=== PATIENT | female | born 1995 | race Caucasian/White ===

== ENCOUNTER 2016-06-24 15:53 | Emergency (ER) | payer MEDICAID ==
--- NOTE | 2016-06-24 15:58 | ER Document Report ---
ED Medical Screen (RME) - General Stated Complaint: RIGHT SIDE MOUTH/JAW PAIN Mode of Arrival: Ambulatory Information source: Patient Notes: Patient presents with right-sided dental pain. Patient was evaluated and treated at her dentist this morning. But she is still having pain. Motrin is not helping pain. I have greeted and performed a rapid initial assessment of this patient. A comprehensive ED assessment and evaluation of the patient, analysis of test results and completion of the medical decision making process will be conducted by additional ED providers. TRAVEL OUTSIDE OF THE U.S. IN LAST 30 DAYS: No - Related Data Allergies/Adverse Reactions: hydromorphone [From Dilaudid] Allergy (Verified 06/24/16 15:56) tramadol Allergy (Verified 06/24/16 15:56) Past Medical History Psychiatric Medical History: Reports: Hx Attention Deficit Hyperactivity Disorder Past Surgical History: Reports: Hx Tonsillectomy - Immunizations Hx Diphtheria, Pertussis, Tetanus Vaccination: Yes
--- NOTE | 2016-06-24 16:25 | ER Document Report ---
ED Oral Problem - General Chief Complaint: Toothache Stated Complaint: RIGHT SIDE MOUTH/JAW PAIN Mode of Arrival: Ambulatory Information source: Patient TRAVEL OUTSIDE OF THE [place].S. IN LAST 30 DAYS: No - HPI Patient complains to provider of: Jaw pain, Toothache Onset: Other - Related Data Allergies/Adverse Reactions: hydromorphone [From Dilaudid] Allergy (Verified 06/24/16 15:56) tramadol Allergy (Verified 06/24/16 15:56) Past Medical History - General Information source: Patient - Social History Smoking Status: Current Every Day Smoker Chew tobacco use (# tins/day): No Frequency of alcohol use: None Drug Abuse: None Family History: Reviewed & Not Pertinent Patient has suicidal ideation: No Patient has homicidal ideation: No Renal/ Medical History: Denies: Hx Peritoneal Dialysis Psychiatric Medical History: Reports: Hx Attention Deficit Hyperactivity Disorder Past Surgical History: Reports: Hx Tonsillectomy - Immunizations Hx Diphtheria, Pertussis, Tetanus Vaccination: Yes Review of Systems - Review of Systems Constitutional: No symptoms reported EENT: No symptoms reported Cardiovascular: No symptoms reported Respiratory: No symptoms reported Gastrointestinal: No symptoms reported Genitourinary: No symptoms reported Female Genitourinary: No symptoms reported Musculoskeletal: No symptoms reported Skin: No symptoms reported Hematologic/Lymphatic: No symptoms reported Neurological/Psychological: No symptoms reported Physical Exam - Vital signs Interpretation: Normal - General General appearance: Appears well, Alert - HEENT Head: Normocephalic, Atraumatic Eyes: Normal Pupils: PERRL - Respiratory Respiratory status: No respiratory distress Chest status: Nontender Breath sounds: Normal Chest palpation: Normal - Cardiovascular Rhythm: Regular Heart sounds: Normal auscultation Murmur: No - Abdominal Inspection: Normal Distension: No distension Bowel sounds: Normal Tenderness: Nontender Organomegaly: No organomegaly - Back Back: Normal, Nontender - Extremities General upper extremity: Normal inspection, Nontender, Normal color, Normal ROM , Normal temperature General lower extremity: Normal inspection, Nontender, Normal color, Normal ROM , Normal temperature, Normal weight bearing. No: Jo Ann's sign - Neurological Neuro grossly intact: Yes Cognition: Normal Orientation: AAOx4 [place] Coma Scale Eye Opening: Spontaneous Janie Coma Scale Verbal: Oriented Janie Coma Scale Motor: Obeys Commands [place] Coma Scale Total: 15 Speech: Normal Motor strength normal: LUE, RUE, LLE, RLE Sensory: Normal - Psychological Associated symptoms: Normal affect, Normal mood - Skin Skin Temperature: Warm Skin Moisture: Dry Skin Color: Normal Discharge - Discharge Clinical Impression: Pain, dental Disposition: HOME, SELF-CARE Instructions: Oral Narcotic Medication ([facility]), Toothache ([facility]) Prescriptions: Hydrocodone/Acetaminophen [[place] 5-325 Tablet] 1 each PO Q4 PRN #12 tablet PRN Reason: Forms: Smoking Cessation Education
[2016-06-24 17:03] VITALS: BP 114/64
== END 2016-06-24 17:02 | disposition home or self-care (01) ==
LOC: ER 15:53
DX: K08.89 Other specified disorders of teeth and supporting structures (principal); R68.84 Jaw pain; F17.210 Nicotine dependence, cigarettes, uncomplicated
CPT/HCPCS: 99282

== ENCOUNTER 2016-10-22 20:48 | Emergency (ER) | payer MEDICAID ==
[2016-10-22 21:39] VITALS: BP 110/76
[2016-10-22] MEDS ORDERED: OXYCODONE-ACETAMINOPHEN 5-325 MG TABLET PO ONE (22:37)
[2016-10-22] MEDS ORDERED: PENICILLIN V POTASSIUM 500 MG TABLET PO ONE (22:37)
--- NOTE | 2016-10-22 22:37 | ER Document Report ---
ED Oral Problem - General Chief Complaint: Toothache Stated Complaint: TOOTHACHE Time Seen by Provider: 10/22/16 22:32 Mode of Arrival: Ambulatory Information source: Patient TRAVEL OUTSIDE OF THE [place] IN LAST 30 DAYS: No - HPI Patient complains to provider of: Toothache Onset: Last week Onset: Gradual Quality of pain: Achy Severity: Moderate Pain Level: 3 Context: Fractured tooth Associated symptoms: None Similar symptoms previously: Yes Recently seen / treated by doctor/dentist: No Notes: Patient is a 21-year-old female who presents to the emergency room complaining of dental pain, reports pain and swelling and erythema in the left mandibular molars, has a dentist that she follows with but is unable to, denies any drainage or fever, no known injury but she reports that tooth is chipped, has a history of poor dentition in the past - Related Data Allergies/Adverse Reactions: hydromorphone [From Dilaudid] Allergy (Verified 10/22/16 21:35) tramadol Allergy (Verified 10/22/16 21:35) Past Medical History - General Information source: Patient - Social History Smoking Status: Current Every Day Smoker Family History: Reviewed & Not Pertinent Renal/ Medical History: Denies: Hx Peritoneal Dialysis Psychiatric Medical History: Reports: Hx Attention Deficit Hyperactivity Disorder Past Surgical History: Reports: Hx Tonsillectomy - Immunizations Hx Diphtheria, Pertussis, Tetanus Vaccination: Yes Review of Systems - Review of Systems Constitutional: No symptoms reported EENT: See HPI Cardiovascular: No symptoms reported Respiratory: No symptoms reported Gastrointestinal: No symptoms reported Genitourinary: No symptoms reported Female Genitourinary: No symptoms reported Musculoskeletal: No symptoms reported Skin: No symptoms reported Hematologic/Lymphatic: No symptoms reported Neurological/Psychological: No symptoms reported -: Yes All other systems reviewed and negative Physical Exam - Vital signs Vitals: Temp Pulse Resp BP Pulse Ox 98.8 F 74 20 110/76 99 10/22/16 21:35 10/22/16 21:35 10/22/16 21:35 10/22/16 21:35 10/22/16 21:35 Interpretation: Normal - General General appearance: Appears well, Alert - HEENT Head: Normocephalic, Atraumatic Eyes: Normal Conjunctiva: Normal Extraocular movements intact: Yes Eyelashes: Normal Pupils: PERRL Mouth/Lips: Dental fracture Mucous membranes: Normal Teeth diagram: 1 - Erythema and swelling with dental caries and fracture - Respiratory Respiratory status: No respiratory distress - Cardiovascular Rhythm: Regular - Abdominal Inspection: Normal - Back Back: Normal - Extremities General upper extremity: Normal inspection, Nontender, Normal color, Normal ROM , Normal temperature General lower extremity: Normal inspection, Nontender, Normal color, Normal ROM , Normal temperature, Normal weight bearing. No: Jo Ann's sign - Neurological Neuro grossly intact: Yes Cognition: Normal Orientation: AAOx4 Janie Coma Scale Eye Opening: Spontaneous Janie Coma Scale Verbal: Oriented [place] Coma Scale Motor: Obeys Commands [place] Coma Scale Total: 15 Speech: Normal Motor strength normal: LUE, RUE, LLE, RLE Sensory: Normal - Psychological Associated symptoms: Normal affect, Normal mood - Skin Skin Temperature: Warm Skin Moisture: Dry Skin Color: Normal Course - Re-evaluation Re-evalutation: 10/22/16 22:40 Patient with dental caries in fracture, as well as evidence of a dental infection, possible early abscess, will be started on antibiotics and provided with a small amount of pain medication as well as information for follow-up with a dentist, acknowledges understanding and agreement with this plan - Vital Signs Vital signs: Temp Pulse Resp BP Pulse Ox 98.8 F 74 20 110/76 99 10/22/16 21:35 10/22/16 21:35 10/22/16 21:35 10/22/16 21:35 10/22/16 21:35 Discharge - Discharge Clinical Impression: Dental abscess Condition: Stable Disposition: HOME, SELF-CARE Instructions: Abscess ([facility]), Penicillin V K ([facility]), Toothache ([facility]), Oral Narcotic Medication ([facility]) Additional Instructions: Follow up with your dentist in one to 2 days. Return to the emergency room immediately if symptoms worsen or any additional concerns. Prescriptions: Oxycodone HCl/Acetaminophen [Percocet 5-325 mg Tablet] 1 - 2 tab PO ASDIR PRN # 15 tablet PRN Reason: Penicillin V Potassium [Penicillin Vk 500 mg Tablet] 500 mg PO TID #30 tablet
== END 2016-10-22 22:44 | disposition home or self-care (01) ==
LOC: ER 20:48
DX: K04.7 Periapical abscess without sinus (principal); K08.89 Other specified disorders of teeth and supporting structures; F17.200 Nicotine dependence, unspecified, uncomplicated
CPT/HCPCS: 99282

== ENCOUNTER 2016-11-03 01:16 | Emergency (ER) | payer MEDICAID ==
[2016-11-03] MEDS ORDERED: BUPIVACAINE HCL 0.5%-EPI 1:200000 INJ/PF 30 ML VIAL INJ ONE (02:54)
--- NOTE | 2016-11-03 02:55 | ER Document Report ---
ED Oral Problem - General Chief Complaint: Toothache Stated Complaint: TOOTH PAIN Time Seen by Provider: 11/03/16 02:15 Mode of Arrival: Ambulatory Information source: Patient Notes: Patient is a 21-year-old female who presents to the ER today for dental pain in the left lower jaw after having a tooth extraction yesterday. Patient states that she was given 15 Percocet, doubled up on them and is already out of them. She presents today asking for a dental block in the area. She is also on clindamycin given to her by the dentist. She denies any fevers , chills, swelling, drainage. TRAVEL OUTSIDE OF THE [place] IN LAST 30 DAYS: No - Related Data Allergies/Adverse Reactions: hydromorphone [From Dilaudid] Allergy (Verified 10/22/16 21:35) tramadol Allergy (Verified 10/22/16 21:35) Past Medical History - General Information source: Patient - Social History Smoking Status: Unknown if Ever Smoked Family History: Reviewed & Not Pertinent Patient has suicidal ideation: No Patient has homicidal ideation: No Renal/ Medical History: Denies: Hx Peritoneal Dialysis Psychiatric Medical History: Reports: Hx Attention Deficit Hyperactivity Disorder Past Surgical History: Reports: Hx Tonsillectomy - Immunizations Hx Diphtheria, Pertussis, Tetanus Vaccination: Yes Review of Systems - Review of Systems Constitutional: No symptoms reported EENT: See HPI Cardiovascular: No symptoms reported Respiratory: No symptoms reported Gastrointestinal: No symptoms reported Genitourinary: No symptoms reported Female Genitourinary: No symptoms reported Musculoskeletal: No symptoms reported Skin: No symptoms reported Hematologic/Lymphatic: No symptoms reported Neurological/Psychological: No symptoms reported Physical Exam - Vital signs Vitals: Temp Pulse Resp BP Pulse Ox 98.1 F 84 19 110/59 L 98 11/03/16 01:28 11/03/16 01:28 11/03/16 01:28 11/03/16 01:28 11/03/16 01:28 - Notes Notes: PHYSICAL EXAMINATION: GENERAL: Well-appearing and in no acute distress. HEAD: Atraumatic, normocephalic. EYES: Pupils equal round and reactive to light, extraocular movements intact, sclera anicteric, conjunctiva are normal. ENT: ear canals without erythema or foreign body, TMs pearly moreira with good bony landmarks, nares patent, oropharynx clear without exudates. Moist mucous membranes. poor dentition, left tooth #20 missing, no erythema to gumline, tender to palpation over that area NECK: Normal range of motion, supple without lymphadenopathy LUNGS: CTAB and equal. No wheezes rales or rhonchi. HEART: Regular rate and rhythm without murmurs EXTREMITIES: Normal range of motion, no pitting edema. No cyanosis. NEUROLOGICAL: Cranial nerves grossly intact. Normal sensory/motor exams. PSYCH: Normal mood, normal affect. SKIN: Warm, Dry, normal turgor, no rashes or lesions noted Course - Vital Signs Vital signs: Temp Pulse Resp BP Pulse Ox 98.1 F 84 19 110/59 L 98 11/03/16 01:28 11/03/16 01:28 11/03/16 01:28 11/03/16 01:28 11/03/16 01:28 Procedures - Additional Procedures dental block Time performed: 03:00 - Patient tolerated procedure well, local dental block Discharge - Discharge Clinical Impression: Pain, dental Instructions: Toothache ([facility]) Additional Instructions: Return immediately for any new or worsening symptoms. Follow up with dentist, call tomorrow to make followup appointment. Prescriptions: Ketorolac Tromethamine [Toradol 10 mg Tablet] 10 mg PO Q6HP PRN #30 tablet PRN Reason: Referrals: KEI GUZMÁN MD [Primary Care Provider] - Follow up as needed
[2016-11-03] MEDS ORDERED: HYDROCODONE/ACETAMINOPHEN 5-325 MG 6 TAB/DSPK PO PRN (03:06)
[2016-11-03 03:14] VITALS: BP 114/63
== END 2016-11-03 03:13 | disposition home or self-care (01) ==
LOC: ER 01:16
PROC: 3E0T3BZ Introduction of Anesthetic Agent into Peripheral Nerves and Plexi, Percutaneous Approach (ICD-10-PCS; principal; 2016-11-03)
DX: K08.89 Other specified disorders of teeth and supporting structures (principal); Z98.890 Other specified postprocedural states; Z88.5 Allergy status to narcotic agent
CPT/HCPCS: 99282; 64400; J3490

== ENCOUNTER 2016-11-06 14:15 | Emergency (ER) | payer MEDICAID ==
--- NOTE | 2016-11-06 15:17 | ER Document Report ---
ED Oral Problem - General Chief Complaint: Toothache Stated Complaint: JAW PAIN Time Seen by Provider: 11/06/16 14:55 Mode of Arrival: Ambulatory Information source: Patient Notes: 31-year-old female presents to ED for dental pain. To the tooth that was pulled and the tooth beside it which would be #19 and 20 TRAVEL OUTSIDE OF THE [place].S[place] IN LAST 30 DAYS: No - HPI Patient complains to provider of: Jaw pain, Toothache Onset: Last week Onset: Gradual Quality of pain: Throbbing Severity: Severe Pain Level: 5 Associated symptoms: Jaw pain, Toothache Worsened by: Cold Relieved by: Nothing Similar symptoms previously: Yes Recently seen / treated by doctor/dentist: Yes - Related Data Allergies/Adverse Reactions: hydromorphone [From Dilaudid] Allergy (Verified 11/06/16 15:56) tramadol Allergy (Verified 11/06/16 15:56) Past Medical History - General Information source: Patient - Social History Smoking Status: Current Every Day Smoker Cigarette use (# per day): Yes - 1/2 ppd Chew tobacco use (# tins/day): No Smoking Education Provided: Yes - less than 2 min Lives with: Friend Family History: CVA, Malignancy Patient has suicidal ideation: No Patient has homicidal ideation: No Renal/ Medical History: Denies: Hx Peritoneal Dialysis Psychiatric Medical History: Reports: Hx Attention Deficit Hyperactivity Disorder Past Surgical History: Reports: Hx Tonsillectomy - Immunizations Hx Diphtheria, Pertussis, Tetanus Vaccination: Yes Review of Systems - Review of Systems Constitutional: No symptoms reported EENT: Mouth swelling, Dental problem Cardiovascular: No symptoms reported Respiratory: No symptoms reported Gastrointestinal: No symptoms reported Genitourinary: No symptoms reported Female Genitourinary: No symptoms reported Musculoskeletal: No symptoms reported Skin: No symptoms reported Hematologic/Lymphatic: No symptoms reported Neurological/Psychological: No symptoms reported Physical Exam - Vital signs Vitals: Temp Pulse Resp BP Pulse Ox 98.6 F 81 14 127/81 H 97 11/06/16 14:21 11/06/16 14:21 11/06/16 14:21 11/06/16 14:21 11/06/16 14:21 Interpretation: Normal - General General appearance: Appears well, Alert - HEENT Head: Normocephalic, Atraumatic Eyes: Normal Pupils: PERRL Nasal: Normal Mouth/Lips: Caries Mucous membranes: Normal Teeth diagram: 1 - recently pull, severe pain 2 - cavity with mild erythema and selling to gums Pharynx: Normal Neck: Normal - Respiratory Respiratory status: No respiratory distress Chest status: Nontender Breath sounds: Normal Chest palpation: Normal - Cardiovascular Rhythm: Regular Heart sounds: Normal auscultation Murmur: No - Abdominal Inspection: Normal Distension: No distension Bowel sounds: Normal Tenderness: Nontender Organomegaly: No organomegaly - Back Back: Normal, Nontender - Extremities General upper extremity: Normal inspection, Nontender, Normal color, Normal ROM , Normal temperature General lower extremity: Normal inspection, Nontender, Normal color, Normal ROM , Normal temperature, Normal weight bearing. No: Jo Ann's sign - Neurological Neuro grossly intact: Yes Cognition: Normal Orientation: AAOx4 [place] Coma Scale Eye Opening: Spontaneous [place] Coma Scale Verbal: Oriented [place] Coma Scale Motor: Obeys Commands [place] Coma Scale Total: 15 Speech: Normal Motor strength normal: LUE, RUE, LLE, RLE Sensory: Normal - Psychological Associated symptoms: Normal affect, Normal mood - Skin Skin Temperature: Warm Skin Moisture: Dry Skin Color: Normal Course - Vital Signs Vital signs: Temp Pulse Resp BP Pulse Ox 98.6 F 75 17 113/77 100 11/06/16 14:21 11/06/16 15:52 11/06/16 15:52 11/06/16 15:52 11/06/16 15:52 Discharge - Discharge Clinical Impression: Pain, dental Condition: Stable Disposition: HOME, SELF-CARE Additional Instructions: TOOTHACHE: Your pain is due to dental decay. The tooth must be repaired in order for you to feel better. You will, therefore, be referred to a dentist. We do not have dentists on the staff at [facility]. Severe swelling or drainage around a tooth usually means a dental abscess. This also requires evaluation and treatment by the dentist, but antibiotics may be prescribed while awaiting dental treatment. You should be rechecked immediately if you develop major swelling of the face, increasing pain, a lump in the jaw or gums, headache, difficulty swallowing, or fever. ORAL NARCOTIC MEDICATION: You have been given a prescription for pain control. This medication is a narcotic. It's best taken with food, as nausea can result if taken on an empty stomach. Don't operate machinery or drive within six hours of taking this medication. Do not combine this medicine with alcohol, or with any medication which can cause sedation (such as cold tablets or sleeping pills) unless you get permission from the physician. Narcotics tend to cause constipation. If possible, drink plenty of fluids and eat a diet high in fiber and fruits. Please be aware that prescription narcotics also have the potential for abuse. People become addicted to these medications because of the general sense of wellbeing that they induce. This feeling along with a significant reduction in tension, anxiety, and aggression provides a stimulating seductive quality to these drugs. Once your pain is under control, we encourage you to discard your unused narcotics. Continue your penicillin as prescribed and please be sure to go to the dentist at your earliest possible moment. We not usually give refills on narcotics but I will give you some as it is a holiday weekend. FOLLOW-UP CARE: You have been referred for follow-up care to the dentists listed below. Call the dentists office for an appointment as you were instructed or within the next two days. If you experience worsening or a significant change in your symptoms, notify the physician immediately or return to the Emergency Department at any time for re-evaluation. [facility] [address], [place] Monday mornings, by appointment [facility] [address] [place] [address] [facility]ly [facility] [address] [facility]. [facility] [address] [facility] [facility] [address] [facility]. [facility] [address] [facility]. [email or web address] [address] [place] [address] Monday- 8:00am to 5:00 pm Will see patients from other [facility]. Charges based on income and family size and accepts Medicare, Medicaid, and Insurances Will pull molars [facility] [address] [address] Hours of Operation 8:00 am - 4:30 pm weekdays The following dental offices accept Medicaid: [facility] [address] Dr[address] Hui Dr. Amaya Kiran Gonzáles, Yolanda, and Jerald oral surgery Dr. Kim ([place]) Dr. Merchant ([place]) [facility] Drs. Lagos ([place]) Dr. Nix ([place]) [facility] Dr. Carrizales ([place]) Drs. Garcia and ([place]) Medicaid Care Line Prescriptions: Oxycodone HCl/Acetaminophen [Percocet 5-325 mg Tablet] 1 tab PO TIDP PRN #10 tablet PRN Reason: Forms: Elevated Blood Pressure, Smoking Cessation Education, Return to Work
[2016-11-06 16:02] VITALS: BP 113/77
== END 2016-11-06 15:52 | disposition home or self-care (01) ==
LOC: ER 14:15
DX: K08.89 Other specified disorders of teeth and supporting structures (principal); R68.84 Jaw pain; F17.210 Nicotine dependence, cigarettes, uncomplicated
CPT/HCPCS: 99283

== ENCOUNTER 2016-12-01 10:24 | Emergency (ER) | payer MEDICAID ==
[2016-12-01] MEDS ORDERED: NORMAL SALINE 1000 ML 1,000 ML IV ONE ×2 (10:52→13:35)
[2016-12-01] MEDS ORDERED: ONDANSETRON HCL INJ/PF 4 MG/2 ML SDV IV ONE (10:52)
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
[2016-12-01 11:37] LABS: ABSOLUTE LYMPHOCYTES (AUTO) 2.2 10^3/uL (0.5-4.7); ABSOLUTE MONOCYTES (AUTO) 0.4 10^3/uL (0.1-1.4); ABSOLUTE NEUT (AUTO) 1.9 10^3/uL (1.7-8.2); BASOPHILS % (AUTO) 0.6 % (0-2); EOSINOPHILS % (AUTO) 0.9 % (0-6); HEMATOCRIT 43.7 % (36.0-47.0); HEMOGLOBIN 14.3 g/dL (12.0-15.5); HGB HCT DIFFERENCE -0.8; LYMPHOCYTES % (AUTO) 47.8 % (13-45); MEAN CORPUSCULAR HEMOGLOBIN 30.1 pg (27.0-33.4); MEAN CORPUSCULAR HGB CONC 32.7 g/dL (32.0-36.0); MEAN CORPUSCULAR VOLUME 92 fl (80-97); MONOCYTES % (AUTO) 8.8 % (3-13); RED BLOOD COUNT 4.73 10^6/uL (3.72-5.28); RED CELL DISTRIBUTION WIDTH 13.2 % (11.5-14.0); SEGMENTED NEUTROPHILS % (AUTO) 41.9 % (42-78); WHITE BLOOD COUNT 4.5 10^3/uL (4.0-10.5)
[2016-12-01 12:08] LABS: ALANINE AMINOTRANSFERASE 24 U/L (9-52); ALBUMIN 4.5 g/dL (3.5-5.0); ALKALINE PHOSPHATASE 63 U/L (38-126); ANION GAP 11 (5-19); ASPARTATE AMINO TRANSFERASE 21 U/L (14-36); BILIRUBIN,DIRECT 0.3 mg/dL (0.0-0.4); BILIRUBIN,TOTAL 0.8 mg/dL (0.2-1.3); BLOOD UREA NITROGEN 8 mg/dL (7-20); CALCIUM 9.3 mg/dL (8.4-10.2); CARBON DIOXIDE 21 mmol/L (22-30); CHLORIDE 107 mmol/L (98-107); CREATININE RESULT 0.72 mg/dL (0.52-1.25); GLUCOSE 94 mg/dL (75-110); POTASSIUM 3.9 mmol/L (3.6-5.0); SODIUM 139.3 mmol/L (137-145); TOTAL PROTEIN 7.7 g/dL (6.3-8.2)
[2016-12-01 12:15] LABS: APPEARANCE,URINE CLOUDY; BILIRUBIN,URINE NEGATIVE (NEGATIVE); GLUCOSE, URINE NEGATIVE (NEGATIVE); KETONES,URINE NEGATIVE (NEGATIVE); LEUKOCYTE ESTERASE,URINE LARGE (NEGATIVE); NITRITE,URINE POSITIVE (NEGATIVE); PROTEIN,URINE NEGATIVE (NEGATIVE); URINE SPECIFIC GRAVITY 1.005; UROBILINOGEN,URINE NEGATIVE mg/dL (<2.0)
[2016-12-01 12:31] LABS: URINE BARBITURATES SCREEN NEGATIVE; URINE METHADONE SCREEN NEGATIVE; URINE OPIATES LOW NEGATIVE; URINE PHENCYCLIDINE SCREEN NEGATIVE
[2016-12-01] MEDS ORDERED: CEFTRIAXONE RTU 1 GM/D5W 50 ML IV ONE (12:33)
[2016-12-01] MEDS ORDERED: NICOTINE 21 MG/24 HR PATCH.TD24 TD ONE (13:38)
[2016-12-01] MEDS ORDERED: SULFAMETHOXAZOLE/TRIMETHOPRIM 800-160 MG TABLET PO ONE (14:00)
[2016-12-01 14:03] LABS: PROTHROMBIN TIME 13.2 SEC (11.4-15.4)
--- NOTE | 2016-12-01 14:13 | RADIOLOGY REPORT (SQ) ---
EXAM DESCRIPTION: CHEST PA/LAT COMPLETED DATE/TIME: 12/01/2016 2:06 pm REASON FOR STUDY: right thoracic back pain COMPARISON: 02/10/2015 EXAM PARAMETERS: NUMBER OF VIEWS: two views TECHNIQUE: Digital Frontal and Lateral radiographic views of the chest acquired. RADIATION DOSE: NA LIMITATIONS: none FINDINGS: LUNGS AND PLEURA: No opacities, masses or pneumothorax. No pleural effusion. MEDIASTINUM AND HILAR STRUCTURES: No masses or contour abnormalities. HEART AND VASCULAR STRUCTURES: Heart normal size. No evidence for failure. BONES: No acute findings. HARDWARE: None in the chest. OTHER: No other significant finding. IMPRESSION: NO SIGNIFICANT RADIOGRAPHIC FINDING IN THE CHEST. TECHNICAL DOCUMENTATION: JOB ID: [id number] [email or web address]- All Rights Reserved
[2016-12-01 15:03] LABS: VENOUS BLOOD BASE EXCESS -4.3 mmol/L; VENOUS BLOOD PCO2 30.1 mmHg (35-63); VENOUS BLOOD PH 7.42 (7.30-7.42)
[2016-12-01] MEDS ORDERED: LIDOCAINE 5% (700 MG) TRANSDERMAL ADH..PATCH TP ONE (15:50)
[2016-12-01] MEDS ORDERED: IBUPROFEN 600 MG TABLET PO ONE (15:50)
[2016-12-01 16:39] VITALS: BP 103/50
--- NOTE | 2016-12-02 04:45 | EKG REPORT ---
SEVERITY:- ABNORMAL ECG - SINUS RHYTHM WITH SHORT CA INTERVAL. : Confirmed by: Sarah Phillip MD 02-Dec-2016 04:02:08
== END 2016-12-01 16:44 | disposition home or self-care (01) ==
LOC: ER 10:24
DX: R55 Syncope and collapse (principal); E86.0 Dehydration; N39.0 Urinary tract infection, site not specified; R11.0 Nausea; M62.830 Muscle spasm of back; M54.2 Cervicalgia; M54.89 Other dorsalgia; G89.29 Other chronic pain; V49.9XXS Car occupant (driver) (passenger) injured in unspecified traffic accident, sequela; Z88.5 Allergy status to narcotic agent; F17.200 Nicotine dependence, unspecified, uncomplicated
CPT/HCPCS: 93005; 99285; 96361; 96375; 96365; 36415; 87040; 87086; 84703; 85025; 85610; 87088; 80053; 81001; 87186; 80307; 82803; 83605; 71020; 93010; J3490 ×4; J2405; J7030; J0696

== ENCOUNTER 2016-12-09 21:38 | Emergency (ER) | payer MEDICAID ==
[2016-12-10] MEDS ORDERED: HYDROCODONE/ACETAMINOPHEN 5-325 MG TABLET PO ONE (00:52)
--- NOTE | 2016-12-10 00:53 | ER Document Report ---
ED General - General Chief Complaint: Toothache Stated Complaint: MOUTH/EAR PAIN Time Seen by Provider: 12/10/16 00:28 Notes: Patient is a 21-year-old female without past medical history who presents with concerns of left lower gumline pain. Patient has been repeatedly seen in the emergency department for the same concern. States that the pain as a severe, constant, aching pain to the area. She has been trying Tylenol and aspirin at home without improvement of the pain. States that she has seen a dentist for this concern but has not scheduled to see that dentist until 16 December. She has not had any facial swelling, vomiting or fever. TRAVEL OUTSIDE OF THE [place] IN LAST 30 DAYS: No - Related Data Allergies/Adverse Reactions: hydromorphone [From Dilaudid] Allergy (Verified 12/01/16 10:32) tramadol Allergy (Verified 12/01/16 10:32) Past Medical History - General Information source: Patient - Social History Smoking Status: Current Every Day Smoker Frequency of alcohol use: None Drug Abuse: None Lives with: Spouse/Significant other Family History: CVA, Malignancy Patient has suicidal ideation: No Patient has homicidal ideation: No Renal/ Medical History: Denies: Hx Peritoneal Dialysis Psychiatric Medical History: Reports: Hx Attention Deficit Hyperactivity Disorder, Hx Depression, Hx Post Traumatic Stress Disorder Past Surgical History: Reports: Hx Orthopedic Surgery - lt ankle, Hx Tonsillectomy - Immunizations Hx Diphtheria, Pertussis, Tetanus Vaccination: Yes Review of Systems - Review of Systems Notes: Constitutional: Negative for fever. HENT: Positive for dental pain Eyes: Negative for visual changes. Cardiovascular: Negative for chest pain. Respiratory: Negative for shortness of breath. Gastrointestinal: Negative for abdominal pain, vomiting or diarrhea. Genitourinary: Negative for dysuria. Musculoskeletal: Negative for back pain. Skin: Negative for rash. Neurological: Negative for headaches, weakness or numbness. 10 point ROS negative except as marked above and in HPI. Physical Exam - Vital signs Vitals: Temp Pulse Resp BP Pulse Ox 98.9 F 113 H 16 96/76 L 98 12/09/16 22:19 12/09/16 22:19 12/09/16 22:19 12/09/16 22:19 12/09/16 22:19 Interpretation: Tachycardic Notes: PHYSICAL EXAMINATION: GENERAL: Well-appearing, well-nourished and in no acute distress. HEAD: Atraumatic, normocephalic. EYES: sclera anicteric, conjunctiva are normal. ENT: Moist mucous membranes. Left lower jawline without any evidence of erythema, edema or swelling NECK: Normal range of motion LUNGS: Normal work of breathing HEART: 2+ radial pulses bilaterally EXTREMITIES: no pitting or edema. No cyanosis. NEUROLOGICAL: No focal neurological deficits. Moves all extremities spontaneously and on command. PSYCH: Normal mood, normal affect. SKIN: Warm, Dry, normal turgor, no rashes or lesions noted. Course - Re-evaluation Re-evalutation: 12/10/16 00:51 Patient presents again today for left lower gumline pain which she states is related to prior dental extractions. Of note patient has been seen in this emergency department repeatedly for pain related complaints due to dental issues. Unfortunately she has received 6 narcotic prescriptions in less than 6 months per [place] controlled substance database review and also regularly sees both clonazepam as well as Adderall prescriptions. I have informed the patient that she will not receive additional narcotic prescriptions for this emergency department that she needs to get definitive management through her dentist. There is no evidence of infection, buccal mucosal swelling I do not appreciate any erythema or induration of the gumline where she points to pain. I have encouraged her to follow-up with dentistry for definitive management. - Vital Signs Vital signs: Temp Pulse Resp BP Pulse Ox 98.5 F 83 18 107/70 98 12/10/16 01:02 12/10/16 01:02 12/10/16 01:02 12/10/16 01:02 12/10/16 01:02 Discharge - Discharge Clinical Impression: Chronic dental pain Condition: Good Disposition: HOME, SELF-CARE Additional Instructions: You have been seen for dental pain. It is very important that you follow-up with a dentist for definitive care. Please return if you develop fever greater than 101, swelling in your face, vomiting, difficulty breathing or swallowing, or any other symptoms that are concerning to you. For pain you should take ibuprofen 600 mg every 6 hours as needed. Referrals: KEI GUZMÁN MD [Primary Care Provider] - Follow up as needed
[2016-12-10 01:03] VITALS: BP 107/70
== END 2016-12-10 01:03 | disposition home or self-care (01) ==
LOC: ER 21:38
DX: G89.29 Other chronic pain (principal); K08.89 Other specified disorders of teeth and supporting structures; F17.200 Nicotine dependence, unspecified, uncomplicated; R00.0 Tachycardia, unspecified; F90.9 Attention-deficit hyperactivity disorder, unspecified type; Z98.890 Other specified postprocedural states; Z79.891 Long term (current) use of opiate analgesic; Z88.5 Allergy status to narcotic agent
CPT/HCPCS: 99282

== ENCOUNTER 2016-12-27 17:39 | Emergency (ER) | payer MEDICAID ==
--- NOTE | 2016-12-27 18:43 | ER Document Report ---
HPI - HPI Pain Level: 4 Notes: Patient with a history of chronic neck and back pain comes to the ED complaining of pain around her right scapula and right trap muscle 1 day. Patient states that her friend was trying to massage out some of the trigger points on the right scapular side, but made the pain worse so patient called EMS and had them bring her to the ED. Patient states that the pain does not radiate otherwise and it is described as a throbbing pain that is occasionally sharp. Denies any loss control bowel or bladder, saddle anesthesia, muscle paralysis/weakness, urinary retention, numbness/tingling otherwise. Patient states that she is still eating and drinking without any difficulties. Patient states she still is move her head around as well as her extremities without any difficulties. Denies any fever, headache, URI, sore throat, dysphagia, chest pain, palpitations, significant cough, wheeze, shortness of breath, abdominal pain, nausea/vomiting/diarrhea, dysuria, hematuria, flank pain, rash. Patient states she does smoke but denies any other drug use. Denies any other significant past medical history. Her PCM is Dr. Arellano. - DIRK Notes: REVIEW OF SYSTEMS: CONSTITUTIONAL : Denies fever, chills, or sweats. Denies recent illness. EENT: Denies eye, ear, throat, or mouth pain or symptoms. Denies nasal or sinus congestion or discharge. Denies throat, tongue, or mouth swelling or difficulty swallowing. CARDIOVASCULAR: Denies chest pain. Denies palpitations or racing or irregular heart beat. Denies ankle edema. RESPIRATORY: Denies cough, cold, or chest congestion. Denies shortness of breath, difficulty breathing, or wheezing. GASTROINTESTINAL: Denies abdominal pain or distention. Denies nausea, vomiting , or diarrhea. Denies blood in vomitus, stools, or per rectum. Denies black, tarry stools. Denies constipation. GENITOURINARY: Denies difficulty urinating, painful urination, burning, frequency, blood in urine, or discharge. MUSCULOSKELETAL: see hpi SKIN: Denies rash, lesions or sores. NEUROLOGICAL: Denies confusion or altered mental status. Denies passing out or loss of consciousness. Denies dizziness or lightheadedness. Denies headache. Denies weakness or paralysis or loss of use of either side. Denies problems with gait or speech. Denies sensory loss, numbness, or tingling. ALL OTHER SYSTEMS REVIEWED AND NEGATIVE. Dictation was performed using [employer] voice recognition software - REPRODUCTIVE Reproductive: DENIES: : - DERM Skin Color: Normal Past Medical History - Social History Smoking Status: Current Every Day Smoker Family History: CVA, Malignancy Patient has suicidal ideation: No Patient has homicidal ideation: No Renal/ Medical History: Denies: Hx Peritoneal Dialysis Psychiatric Medical History: Reports: Hx Attention Deficit Hyperactivity Disorder, Hx Depression, Hx Post Traumatic Stress Disorder Past Surgical History: Reports: Hx Orthopedic Surgery - lt ankle, Hx Tonsillectomy - Immunizations Hx Diphtheria, Pertussis, Tetanus Vaccination: Yes Vertical Provider Document - CONSTITUTIONAL Agree With Documented VS: Yes Notes: PHYSICAL EXAMINATION: GENERAL: Well-appearing, well-nourished and in no acute distress. HEAD: Atraumatic, normocephalic. EYES: Pupils equal round and reactive to light, extraocular movements intact, sclera anicteric, conjunctiva are normal. ENT: EAC clear b/l. TM's intact b/l without erythema, fluid, or perforation. Nares patent and without discharge. oropharynx clear without exudates. No tonsilar hypertrophy or erythema. Moist mucous membranes. No sinus tenderness. NECK: Normal range of motion, supple without lymphadenopathy. No rigidity. LUNGS: Breath sounds clear to auscultation bilaterally and equal. No wheezes rales or rhonchi. HEART: Regular rate and rhythm without murmurs, rubs, gallops. ABDOMEN: Soft, nontender, nondistended abdomen. No guarding, no rebound. No masses appreciated. Normal bowel sounds present. No CVA tenderness bilaterally. No pulsatile mass Musculoskeletal: Ext b/l: FROM to passive/active. Strength 5+/5. No focal deficits Back: FROM/Strength 5+/5. + muscle spasming and trigger points to rt trapezius mm periscapular. No bony tenderness. No ecchymosis, step-offs, or deformities otherwise. Extremities: No cyanosis, clubbing, or edema b/l. Peripheral pulses 2+. Capillary refill less than 2 seconds. NEUROLOGICAL: Normal speech, normal gait. Normal sensory, motor exams PSYCH: Normal mood, normal affect. SKIN: Warm, Dry, normal turgor, no rashes or lesions noted. - INFECTION CONTROL TRAVEL OUTSIDE OF THE [place] IN LAST 30 DAYS: No - RESPIRATORY O2 Sat by Pulse Oximetry: 96 Course - Re-evaluation Re-evalutation: 12/27/16 18:49 Patient is an afebrile, well-hydrated, 21-year-old female with acute on chronic back pain, suspect muscle spasm and trigger points based on H&P today. Vitals stable. PE otherwise unremarkable. Low suspicion for any meningitis, fracture , expanding/ruptured AAA, cauda equina syndrome, epidural mass lesion/abscess, herniated disc causing severe spinal stenosis, or other systemic infection at this time. Patient is aware that his condition can change from initial presentation and that he needs monitor symptoms closely for any acute changes. I will send her home with a prescription for Voltaren gel, Flexeril, meloxicam. Conservative measures otherwise for symptoms. Recheck with her PCM in 2-3 days. Consider consult with physical therapy. Return to the ED with any worsening/concerning symptoms otherwise as reviewed in discharge. Patient is in agreement. - Vital Signs Vital signs: Temp Pulse Resp BP Pulse Ox 98.1 F 98 15 98/65 L 96 12/27/16 17:56 12/27/16 17:56 12/27/16 17:56 12/27/16 17:56 12/27/16 17:56 Discharge - Discharge Clinical Impression: Muscle spasm Thoracic back pain Qualifiers: Chronicity: acute Back pain laterality: right Qualified Code(s): M54.6 - Pain in thoracic spine Condition: Stable Disposition: HOME, SELF-CARE Instructions: Ice Packs ([facility]), Warm Packs ([facility]), Muscle Relaxers ([facility]), Stretching Exercises for the Back ([facility]), Upper Back Strain ([facility]) Additional Instructions: Rest, Ice, Compression, Elevation Tylenol/ibuprofen as needed Light stretches daily Strength exercises as able Moist heat and massage may help F/u with your PCP in 2-3 days for a recheck Consider consult(s) with Orthopedics, physical therapy for ongoing/worsening symptoms Return to the ED with any worsening symptoms and/or development of fever, headache, chest pain, palpitations, syncope, shortness of breath, trouble breathing, abdominal pain, n/v/d, blood in stool/urine, loss of control of bowel /bladder, urinary retention, muscle weakness/paralysis, numbness/tingling, or other worsening symptoms that are concerning to you. Prescriptions: Cyclobenzaprine HCl [Flexeril 10 mg Tablet] 10 mg PO TIDP PRN #15 tab PRN Reason: Diclofenac Sodium [Voltaren] 4 gm TP QID PRN #100 gel..gm. PRN Reason: Meloxicam 7.5 mg PO BID PRN #20 tablet PRN Reason: Forms: Smoking Cessation Education Referrals: [facility] [Provider Group] - Follow up as needed
[2016-12-27 18:56] VITALS: BP 98/60
== END 2016-12-27 18:54 | disposition home or self-care (01) ==
LOC: ER 17:39
DX: M54.6 Pain in thoracic spine (principal); G89.29 Other chronic pain; M62.830 Muscle spasm of back; F17.200 Nicotine dependence, unspecified, uncomplicated
CPT/HCPCS: 99283

== ENCOUNTER 2017-01-07 12:54 | Emergency (ER) | payer MEDICAID ==
[2017-01-07 13:02] VITALS: BP 114/70
[2017-01-07] MEDS ORDERED: BENZONATATE 100 MG CAPSULE PO ONE (13:23)
[2017-01-07] MEDS ORDERED: PENICILLIN V POTASSIUM 500 MG TABLET PO ONE (13:24)
[2017-01-07] MEDS ORDERED: ACETAMINOPHEN 325 MG TABLET PO ONE (13:24)
--- NOTE | 2017-01-07 13:29 | ER Document Report ---
HPI - HPI Patient complains to provider of: toothache Onset: Yesterday Onset/Duration: Gradual Pain Level: 2 Context: 21-year-old female complaining of top right first molar pain that cracked yesterday when she ate chicken. She has tried meloxicam and otc numbing dental gel and it is not helping. She is allergic to Dilaudid and tramadol. She does not know what else to do because she cannot see her dentist today. No facial swelling or fever. Associated Symptoms: None Exacerbated by: Denies Relieved by: Denies Similar symptoms previously: No Recently seen / treated by doctor: No - ROS ROS below otherwise negative: Yes Systems Reviewed and Negative: Yes All other systems reviewed and negative - REPRODUCTIVE Reproductive: DENIES: : - DERM Skin Color: Normal Past Medical History - General Information source: Patient - Social History Smoking Status: Unknown if Ever Smoked Frequency of alcohol use: None Drug Abuse: None Lives with: Family Family History: CVA, Malignancy Renal/ Medical History: Denies: Hx Peritoneal Dialysis Psychiatric Medical History: Reports: Hx Attention Deficit Hyperactivity Disorder, Hx Depression, Hx Post Traumatic Stress Disorder Past Surgical History: Reports: Hx Orthopedic Surgery - lt ankle, Hx Tonsillectomy - Immunizations Hx Diphtheria, Pertussis, Tetanus Vaccination: Yes Vertical Provider Document - CONSTITUTIONAL Agree With Documented VS: Yes Exam Limitations: No Limitations - INFECTION CONTROL TRAVEL OUTSIDE OF THE [place] IN LAST 30 DAYS: No - HEENT HEENT: Normocephalic Notes: some dental decay 1st molar top right, no abscess - NECK Neck: Supple. negative: Lymphadenopathy-Left, Lymphadenopathy-Right - RESPIRATORY O2 Sat by Pulse Oximetry: 99 - MUSCULOSKELETAL/EXTREMETIES Musculoskeletal/Extremeties: GILES TOBIN - NEURO Level of Consciousness: Awake, Alert, Appropriate - DERM Integumentary: Warm, Dry, No Rash Course - Vital Signs Vital signs: Temp Pulse Resp BP Pulse Ox 98.9 F 68 16 114/70 99 01/07/17 12:59 01/07/17 12:59 01/07/17 12:59 01/07/17 12:59 01/07/17 12:59 Discharge - Discharge Clinical Impression: dental pain and decay Condition: Good Disposition: HOME, SELF-CARE Instructions: Penicillin V K ([facility]), Toothache ([facility]), Acetaminophen, Dentist Additional Instructions: see the dentist puncture hole in the tessalon perle and squeeze the liquid onto the tooth every 6 hours as needed continue the over the counter motrin and tyrlnol Please complete the patient satisfaction survey if you get one, and return it.. If you do not receive a survey, then you can go to the [facility] website, [email or web address] and place your comments about your very good care. Thank you very much. It was a pleasure being your medical provider today. Prescriptions: Penicillin V Potassium [Penicillin Vk 500 mg Tablet] 500 mg PO QID #40 tablet
[2017-01-07] MEDS ORDERED: ERYTHROMYCIN 0.5% OPH OINT 1 GM UNIT DOSE OD ONE (13:46)
[2017-01-07] MEDS ORDERED: KETOROLAC TROMETHAMINE 0.45% 4 DROP/0.4 ML DROPERETTE OU ONE (13:46)
== END 2017-01-07 13:51 | disposition home or self-care (01) ==
LOC: ER 12:54
DX: K08.89 Other specified disorders of teeth and supporting structures (principal); K02.9 Dental caries, unspecified
CPT/HCPCS: 99282; J3490 ×3

== ENCOUNTER 2017-01-07 14:45 | Emergency (ER) | payer MEDICAID ==
[2017-01-07 14:51] VITALS: BP 140/98
[2017-01-07] MEDS ORDERED: PROMETHAZINE HCL 25 MG TABLET PO ONE (15:19)
--- NOTE | 2017-01-07 15:19 | ER Document Report ---
HPI - HPI Patient complains to provider of: toothache and possible med reaction Pain Level: 4 Context: 21 yo female was seen in ED less than 2hr ago for dental pain. pt was given Pen VK and a Tessalon Perle was punctured and squeezed onto her tooth. while waiting in parking lot, she vomited x 2. she called her pharmacist and was advised to be re-checked. presently pt is not actively vomiting, but is nauseated and she says her tooth still hurts Associated Symptoms: None Exacerbated by: Denies Relieved by: Denies Similar symptoms previously: Yes Recently seen / treated by doctor: Yes - ROS Systems Reviewed and Negative: Yes All other systems reviewed and negative - REPRODUCTIVE Reproductive: DENIES: : - DERM Skin Color: Normal Past Medical History - General Information source: Patient - Social History Smoking Status: Current Every Day Smoker Frequency of alcohol use: Social Drug Abuse: None Lives with: Family Family History: Reviewed & Not Pertinent, CVA, Malignancy - Medical History Medical History: Negative Renal/ Medical History: Denies: Hx Peritoneal Dialysis Psychiatric Medical History: Reports: Hx Attention Deficit Hyperactivity Disorder, Hx Depression, Hx Post Traumatic Stress Disorder Past Surgical History: Reports: Hx Orthopedic Surgery - lt ankle, Hx Tonsillectomy - Immunizations Hx Diphtheria, Pertussis, Tetanus Vaccination: Yes Vertical Provider Document - CONSTITUTIONAL Agree With Documented VS: Yes Exam Limitations: No Limitations General Appearance: WD/WN, No Apparent Distress - INFECTION CONTROL TRAVEL OUTSIDE OF THE [place] IN LAST 30 DAYS: No - HEENT HEENT: Normal ENT Exam Mouth Diagram: 1 - pain, no gingival edema noted - NECK Neck: Normal Inspection - RESPIRATORY Respiratory: Breath Sounds Normal, No Respiratory Distress O2 Sat by Pulse Oximetry: 99 - CARDIOVASCULAR Cardiovascular: Regular Rate, Regular Rhythm - GI/ABDOMEN Gastrointestinal: Abdomen Soft, Abdomen Non-Tender - MUSCULOSKELETAL/EXTREMETIES Musculoskeletal/Extremeties: MADRE, FROM - NEURO Level of Consciousness: Awake, Alert - DERM Integumentary: Warm, Dry Course - Vital Signs Vital signs: Temp Pulse Resp BP Pulse Ox 98.2 F 69 20 140/98 H 99 01/07/17 14:50 01/07/17 14:50 01/07/17 14:50 01/07/17 14:50 01/07/17 14:50 Discharge - Discharge Clinical Impression: Pain, dental Condition: Stable Disposition: HOME, SELF-CARE Instructions: [facility], Toothache ([facility]), Ibuprofen (General) ( [facility]), Antinausea Medication ([facility]) Additional Instructions: If you take Ibuprofen, stop Meloxicam Follow up with Dental for further evaluation and treatment Prescriptions: Ibuprofen [Motrin 800 Mg Tablet] 800 mg PO Q6H #20 tablet Promethazine HCl [Phenergan 25 mg Tablet] 25 mg PO Q6H PRN #15 tablet PRN Reason: Forms: Elevated Blood Pressure
== END 2017-01-07 15:32 | disposition home or self-care (01) ==
LOC: ER 14:45
DX: K08.89 Other specified disorders of teeth and supporting structures (principal); R11.10 Vomiting, unspecified; F17.200 Nicotine dependence, unspecified, uncomplicated
CPT/HCPCS: 99283; J3490

== ENCOUNTER 2017-10-03 21:44 | Emergency (ER) | payer MEDICAID ==
[2017-10-03 22:07] VITALS: BP 120/69
[2017-10-03] MEDS ORDERED: KETOROLAC TROMETHAMINE INJ/PF 30 MG/1 ML SDV IM ONE (23:43)
--- NOTE | 2017-10-03 23:44 | ER Document Report ---
HPI - HPI Pain Level: 4 Notes: Patient is a 22-year-old female with a history of chronic left ankle pain and surgery 2 years ago who presents to the ED complaining of recurrence of her pain last few weeks. 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 Patient states that she has been using conservative measures with minimal relief. Patient states that she try to contact her surgeon, but she does not have insurance that she cannot get evaluated at this time. Patient states that the pain does not radiate and is maintained to the lateral foot/ankle. She denies any recent trauma. Patient states that she is still able to ambulate. She denies any IV drug use or smoking. No other concerns or complaints at this time. Denies any headache, fever,URI, sore throat, chest pain, palpitations, syncope, cough, shortness of breath, wheeze, dyspnea, abdominal pain, nausea/vomiting/diarrhea, urinary retention, dysuria, hematuria, loss of control of bowel or bladder, numbness/tingling, muscle paralysis/weakness, or rash. - ROS Systems Reviewed and Negative: Yes All other systems reviewed and negative - REPRODUCTIVE Reproductive: DENIES: : Past Medical History - Social History Smoking Status: Never Smoker Family History: Reviewed & Not Pertinent, CVA, Malignancy Renal/ Medical History: Denies: Hx Peritoneal Dialysis Psychiatric Medical History: Reports: Hx Attention Deficit Hyperactivity Disorder, Hx Depression, Hx Post Traumatic Stress Disorder Past Surgical History: Reports: Hx Orthopedic Surgery - lt ankle, Hx Tonsillectomy - Immunizations Hx Diphtheria, Pertussis, Tetanus Vaccination: Yes Vertical Provider Document - CONSTITUTIONAL Agree With Documented VS: Yes Notes: PHYSICAL EXAMINATION: GENERAL: Well-appearing, well-nourished and in no acute distress. LUNGS: Breath sounds clear to auscultation bilaterally and equal. No wheezes rales or rhonchi. HEART: Regular rate and rhythm without murmurs, rubs, gallops. Musculoskeletal: Left ankle: No swelling, erythema, ecchymosis, deformity, or warmth. FROM to passive/active. Strength 5+/5. N/V intact distal. + mild tenderness near the ATFL. Achilles intact. Extremities: No cyanosis, clubbing, or edema b/l. Peripheral pulses 2+. Capillary refill less than 3 seconds. NEUROLOGICAL: Normal speech, normal gait. Normal sensory, motor exams PSYCH: Normal mood, normal affect. SKIN: Warm, Dry, normal turgor, no rashes or lesions noted. - INFECTION CONTROL TRAVEL OUTSIDE OF THE [place] IN LAST 30 DAYS: No Course - Re-evaluation Re-evalutation: 10/03/17 01:25 Pt had to leave prior to receiving the XR result. Pt states that we can call her. Pt is ambulatory and I have a low suspicion for any significant pathology at this time given that this has been an ongoing issue for over 2 years. 10/03/17 01:50 Patient is an afebrile, well-hydrated, 22-year-old female who presents to the ED with left ankle pain, suspect inflammatory at this time. Vitals are acceptable. PE is otherwise unremarkable for any neurovascular compress, obvious tendon/ligament rupture, obvious fracture/dislocation, septic joint. X- ray was unremarkable for any acute pathology. Ankle stirrup splint and Toradol were given today. I will send her home with a prescription for naproxen. Conservative measures otherwise for symptoms. Recheck with your PCM in 3-5 days. Schedule an appointment with orthopedics/or your specialist. Return to the ED with any worsening/concerning symptoms otherwise as reviewed in discharge. Patient is in agreement. - Vital Signs Vital signs: Temp Pulse Resp BP Pulse Ox 97.9 F 103 H 20 120/69 97 10/03/17 22:05 10/03/17 22:05 10/03/17 22:05 10/03/17 22:05 10/03/17 22:05 Discharge - Discharge Clinical Impression: Left ankle pain Qualifiers: Chronicity: acute Qualified Code(s): M25.572 - Pain in left ankle and joints of left foot Condition: Stable Disposition: HOME, SELF-CARE Instructions: Ankle Stirrup Splint ([facility]) Additional Instructions: Rest, Ice, Compression, Elevation Use splint as directed Tylenol/ibuprofen as needed Light stretches daily Strength exercises as able Moist heat and massage may help F/u with your PCP in 3-5 days for a recheck Consider consult(s) with Orthopedics/physical therapy for ongoing/worsening symptoms Return to the ED with any worsening symptoms and/or development of fever, headache, chest pain, palpitations, syncope, shortness of breath, trouble breathing, abdominal pain, n/v/d, muscle weakness/paralysis, numbness/tingling, swelling, redness, or other worsening symptoms that are concerning to you. Prescriptions: Naproxen 500 mg PO BID PRN #30 tablet PRN Reason: Referrals: NANNETTE ALEX DPM [ACTIVE STAFF] - Follow up in 1 week
--- NOTE | 2017-10-04 01:47 | RADIOLOGY REPORT (SQ) ---
EXAM DESCRIPTION: ANKLE LEFT COMPLETE CLINICAL HISTORY: 22 years, Female, pain and swelling in ankle COMPARISON: 2.., report only NUMBER OF VIEWS: 3 LIMITATIONS: None. FINDINGS: 0.9 x 0.3 cm deep osteochondral defect at the medial left talar dome consistent with prior report from July 2014. Mild diffuse swelling. 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
== END 2017-10-04 01:22 | disposition home or self-care (01) ==
LOC: ER 21:44
DX: M25.572 Pain in left ankle and joints of left foot (principal)
CPT/HCPCS: 99283; 96372; 73610; L1902; L4350; J1885

== ENCOUNTER 2018-07-21 22:10 | Emergency (ER) | payer SELFPAY ==
[2018-07-21 23:25] VITALS: BP 127/81
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
== END 2018-07-22 01:47 | disposition home or self-care (01) ==
LOC: ER 22:10
DX: S60.221A Contusion of right hand, initial encounter (principal); Y04.2XXA Assault by strike against or bumped into by another person, initial encounter; F17.200 Nicotine dependence, unspecified, uncomplicated
CPT/HCPCS: 99283

== ENCOUNTER 2018-12-20 19:24 | Observation (INO) | payer MEDICAID ==
[2018-12-20 20:20] LABS: APPEARANCE,URINE CLOUDY; BILIRUBIN,URINE NEGATIVE (NEGATIVE); COLOR,URINE AMBER; GLUCOSE, URINE NEGATIVE (NEGATIVE); KETONES,URINE 20 mg/dL (NEGATIVE); LEUKOCYTE ESTERASE,URINE MODERATE (NEGATIVE); NITRITE,URINE POSITIVE (NEGATIVE); PROTEIN,URINE 100 mg/dL (NEGATIVE); URINE SPECIFIC GRAVITY 1.019; UROBILINOGEN,URINE NEGATIVE mg/dL (<2.0)
[2018-12-20 20:24] LABS: URINE AMPHETAMINES SCREEN NEGATIVE; URINE BARBITURATES SCREEN NEGATIVE; URINE COCAINE SCREEN NEGATIVE; URINE METHADONE SCREEN NEGATIVE; URINE PHENCYCLIDINE SCREEN NEGATIVE
[2018-12-20 20:26] LABS: URINE BENZODIAZEPINES SCREEN UNCONFIRMED POSITIVE
[2018-12-20 20:27] LABS: URINE MARIJUANA (THC) SCREEN UNCONFIRMED POSITIVE
[2018-12-20] MEDS ORDERED: CEFTRIAXONE INJ 1000 MG VIAL ONE (21:33)
[2018-12-20 21:35] LABS: ABSOLUTE EOSINOPHILS # (AUTO) 0.1 10^3/uL (0.0-0.6); ABSOLUTE LYMPHOCYTES (AUTO) 2.1 10^3/uL (0.5-4.7); ABSOLUTE MONOCYTES (AUTO) 0.9 10^3/uL (0.1-1.4); ABSOLUTE NEUT (AUTO) 9.8 10^3/uL (1.7-8.2); BASOPHILS % (AUTO) 0.3 % (0-2); EOSINOPHILS % (AUTO) 0.5 % (0-6); HEMATOCRIT 34.7 % (36.0-47.0); HEMOGLOBIN 11.8 g/dL (12.0-15.5); LYMPHOCYTES % (AUTO) 16.1 % (13-45); MEAN CORPUSCULAR HEMOGLOBIN 31.4 pg (27.0-33.4); MEAN CORPUSCULAR HGB CONC 33.9 g/dL (32.0-36.0); MEAN CORPUSCULAR VOLUME 93 fl (80-97); MONOCYTES % (AUTO) 7.2 % (3-13); PLATELET COUNT 197 10^3/uL (150-450); RED BLOOD COUNT 3.75 10^6/uL (3.72-5.28); RED CELL DISTRIBUTION WIDTH 13.4 % (11.5-14.0); SEGMENTED NEUTROPHILS % (AUTO) 75.9 % (42-78); TOTAL CELLS COUNTED % (AUTO) 100 %; WHITE BLOOD COUNT 12.9 10^3/uL (4.0-10.5)
[2018-12-20 21:56] LABS: ALANINE AMINOTRANSFERASE 19 U/L (9-52); ALBUMIN 3.6 g/dL (3.5-5.0); ALKALINE PHOSPHATASE 79 U/L (38-126); ANION GAP 8 (5-19); ASPARTATE AMINO TRANSFERASE 18 U/L (14-36); BILIRUBIN,DIRECT 0.2 mg/dL (0.0-0.4); BILIRUBIN,TOTAL 0.4 mg/dL (0.2-1.3); BLOOD UREA NITROGEN 7 mg/dL (7-20); CALCIUM 9.4 mg/dL (8.4-10.2); CARBON DIOXIDE 20 mmol/L (22-30); CHLORIDE 104 mmol/L (98-107); GLUCOSE 83 mg/dL (75-110); POTASSIUM 3.6 mmol/L (3.6-5.0); TOTAL PROTEIN 6.5 g/dL (6.3-8.2)
[2018-12-20] MEDS ORDERED: CEFTRIAXONE INJ 1000 MG VIAL IV SCH (22:00)
[2018-12-20] MEDS ORDERED: CYCLOBENZAPRINE HCL 10 MG TABLET ONE (22:39)
[2018-12-20] MEDS ORDERED: CYCLOBENZAPRINE HCL 10 MG TABLET PO ONE (23:00)
[2018-12-21] MEDS ORDERED: ACETAMINOPHEN WITH CODEINE #3 TABLET PO PRN (01:22)
[2018-12-21] MEDS ORDERED: ZOLPIDEM TARTRATE 5 MG TABLET PO ONE (02:00)
--- NOTE | 2018-12-21 09:00 | Discharge Summary ---
Discharge Summary (SDC) - Discharge Final Diagnosis: UTI in Discharge Date: 12/21/18 Condition: Good Prescriptions: Cephalexin Monohydrate [Keflex 500 mg Capsule] 500 mg PO QID #40 capsule Referrals: KEI GUZMÁN MD [Primary Care Provider] - Discharge Diet: As Tolerated Discharge Activity: Activity As Tolerated Home Care Assistance: None Needed Report the Following to Your Physician Immediately: Shortness of Breath, Nausea, Vomiting, Increase in Pain, Fever over 101 Degrees, Unusual Bleeding, IV Site Infection Signs, Urinary Infection Signs
[2018-12-21 09:01] VITALS: BP 105/58
[2018-12-21] MEDS ORDERED: ZOLPIDEM TARTRATE 5 MG TABLET PO SCH (22:00)
--- NOTE | 2018-12-26 12:40 | PDOC H&P ---
History of Present Illness Admission Date/PCP: 12/20/18 22:40 KEI GUZMÁN MD Patient complains of: Flank pain History of Present Illness: CAROLYN LABOY is a 23 year old G1 with an IUP at 24-2/7 weeks presents to L&D complaining of flank pain. She admits to good movement. She denies cramping and contractions. Pt denies F/C and N/V. Past Medical History Gynecological Infection: No Psychiatric Medical History: Reports: Attention Deficit Hyperactivity Disorder, Depression, Post Traumatic Stress Disorder Past Surgical History Past Surgical History: Reports: None, Orthopedic Surgery - lt ankle, Tonsillectomy Social History Smoking Status: Current Every Day Smoker Drugs: Marijuana Family History Family History: None, Reviewed & Not Pertinent, CVA, Malignancy Parental Family History Reviewed: No - N/A Children Family History Reviewed: NA Sibling(s) Family History Reviewed.: NA Medication/Allergy Home Medications: Vit,Calc76/Iron/Folic [Prenatabs Rx Tablet] 1 each PO DAILY 12/20/18 Cephalexin Monohydrate [Keflex 500 mg Capsule] 500 mg PO QID #40 capsule 12/21/18 Allergies/Adverse Reactions: hydromorphone [From Dilaudid] Allergy (Verified 01/07/17 14:50) tramadol Allergy (Verified 01/07/17 14:50) Review of Systems Constitutional: PRESENT: as per HPI Cardiovascular: ABSENT: as per HPI, chest pain, dyspnea on exertion, edema, orthropnea, palpitations, other Gastrointestinal: ABSENT: as per HPI, abdominal pain, bloating, coffee ground emesis, constipation, diarrhea, dysphagia, heartburn, hematemesis, hematochezia, melena, nausea, vomiting, other Musculoskeletal: PRESENT: back pain Physical Exam - Physical Exam Vital Signs: Temp Pulse Resp BP Pulse Ox 98.4 F 81 16 105/58 L 95 12/21/18 09:00 12/21/18 09:00 12/21/18 09:00 12/21/18 09:00 12/21/18 09:00 General appearance: PRESENT: mild distress Respiratory exam: PRESENT: clear to auscultation adriano Cardiovascular exam: PRESENT: RRR GI/Abdominal exam: PRESENT: normal bowel sounds, other - Gravid Extremities exam: ABSENT: calf tenderness, clubbing, full ROM, joint swelling, pedal edema, tenderness, +1 edema, +2 edema, other Result Laboratory Results: 12/20/18 21:14 12/20/18 21:14 Assessment & Plan - Diagnosis (1) Qualifiers: Weeks of gestation: 24 weeks Qualified Code(s): Z3A.24 - 24 weeks gestation of Is this a current diagnosis for this admission?: Yes (2) UTI (urinary tract infection) during Qualifiers: Trimester: second trimester Qualified Code(s): O23.42 - Unspecified infection of urinary tract in , second trimester Is this a current diagnosis for this admission?: Yes - Time Time Spent: 30 to 50 Minutes Medications reviewed and adjusted accordingly: Yes Anticipated discharge: Home Within: within 24 hours - Inpatient Certification Based on my medical assessment, after consideration of the patient's comorbidities, presenting symptoms, or acuity I expect that the services needed warrant INPATIENT care.: Yes I certify that my determination is in accordance with my understanding of Medicare's requirements for reasonable and necessary INPATIENT services [42 CFR 412.3e].: Yes Medical Necessity: Need For IV Fluids, Need for Pain Control, Need for IV Antibiotics - Plan Summary Plan Summary: 1. Observation 2. IV fluids 3. IV antibiotics 4. Pain management
[2018-12-26 17:36] LABS: BENZODIAZEPINE CONFIRMATION UR Negative (Cutoff=300)
[2018-12-27 07:30] LABS: CANNABINOID CONFIRMATION UR Positive (.)
== END 2018-12-21 09:20 | disposition home or self-care (01) ==
LOC: LC 19:24 → LR 22:40 → 2S 12-21 00:20 → UNDODISOB 12-21 09:20
PROVIDERS: ADMIT Obstetrics & Gynecology; ATTEND Obstetrics & Gynecology
DX: O23.42 Unspecified infection of urinary tract in pregnancy, second trimester (principal); O99.332 Smoking (tobacco) complicating pregnancy, second trimester; F17.200 Nicotine dependence, unspecified, uncomplicated; O26.892 Other specified pregnancy related conditions, second trimester; M54.9 Dorsalgia, unspecified; Z3A.24 24 weeks gestation of pregnancy
CPT/HCPCS: 36415; 85025; 80053; 81001; 80307; 80361; G0480 ×4; J3490; J0696; 80349

== ENCOUNTER 2019-12-08 17:30 | Emergency (ER) | payer MEDICAID ==
[2019-12-08 17:40] VITALS: BP 111/70
[2019-12-08] MEDS ORDERED: OXYCODONE-ACETAMINOPHEN 5-325 MG TABLET PO ONE (18:49)
--- NOTE | 2019-12-08 19:15 | ER Document Report ---
HPI - HPI Patient complains to provider of: Postoperative pain Time Seen by Provider: 12/08/19 18:35 Onset: Other - 4 days Onset/Duration: Persistent Quality of pain: Sharp Pain Level: 5 Context: Patient states that she had surgery for a left ankle osteotomy with talar allograft. Patient states she ran out of pain medicine this afternoon. Patient reports increased left foot and ankle pain. Patient states that she called her doctor and was given a prescription for medication that she is allergic to. Patient states that she has since been unable to contact her doctor for additional guidance. Patient denies any recent injury. Patient denies any fever. Associated Symptoms: denies: Fever, Vomiting Exacerbated by: Sitting, Standing, Movement Relieved by: Denies Similar symptoms previously: No Recently seen / treated by doctor: Yes - ROS ROS below otherwise negative: Yes Systems Reviewed and Negative: Yes All other systems reviewed and negative - CONSTITUTIONAL Constitutional: DENIES: Fever, Chills - GASTROINTESTINAL Gastrointestinal: DENIES: Nausea - REPRODUCTIVE Reproductive: DENIES: : - MUSCULOSKELETAL Musculoskeletal: REPORTS: Extremity pain - DERM Skin Color: Normal Skin Problems: None Past Medical History - General Information source: Patient - Social History Smoking Status: Current Every Day Smoker Frequency of alcohol use: None Drug Abuse: None Lives with: Family Family History: None, Reviewed & Not Pertinent, CVA, Malignancy Renal/ Medical History: Denies: Hx Peritoneal Dialysis Psychiatric Medical History: Reports: Hx Attention Deficit Hyperactivity Disorder, Hx Depression, Hx Post Traumatic Stress Disorder Past Surgical History: Reports: Hx Orthopedic Surgery - lt ankle, Hx Tonsillectomy - Immunizations Hx Diphtheria, Pertussis, Tetanus Vaccination: Yes Vertical Provider Document - CONSTITUTIONAL Agree With Documented VS: Yes Exam Limitations: No Limitations General Appearance: WD/WN, Mild Distress - INFECTION CONTROL TRAVEL OUTSIDE OF THE [place] IN LAST 30 DAYS: No - HEENT HEENT: Atraumatic, Normocephalic - NECK Neck: Normal Inspection - RESPIRATORY Respiratory: Breath Sounds Normal, No Respiratory Distress - CARDIOVASCULAR Cardiovascular: Regular Rate, Regular Rhythm - MUSCULOSKELETAL/EXTREMETIES Musculoskeletal/Extremeties: Tender - Left foot tenderness, large bulky dressing in place, normal cap refill to toes of left foot - NEURO Level of Consciousness: Awake, Alert, Appropriate Motor/Sensory: No Motor Deficit - DERM Integumentary: Warm, Dry Course - Re-evaluation Re-evalutation: 12/08/19 19:15 Attempted to consult with patient's orthopedic surgeon, message left on his voicemail for return call. Attempted to call [facility] to speak with on-call provider, they state that no one is on-call for his practice. 12/08/19 19:[address] Call who states [place] and states that he cannot access his computer at this time but is requesting a prescription refill be written for 20 tabs, if provider is comfortable doing so. States that he will have his office staff reach out to the patient for follow-up. - Vital Signs Vital signs: Temp Pulse Resp BP Pulse Ox 97.4 F 102 H 16 111/70 99 12/08/19 17:39 12/08/19 17:39 12/08/19 17:39 12/08/19 17:39 12/08/19 17:39 Discharge - Discharge Clinical Impression: Postoperative pain Condition: Stable Disposition: HOME, SELF-CARE Instructions: Elevate the Injury ([facility]), Oral Narcotic Medication ([facility]) Additional Instructions: Return immediately for any new or worsening symptoms Followup with your surgeons office call tomorrow to make a followup appointment Prescriptions: Oxycodone HCl/Acetaminophen [Percocet 10-325 Mg Tablet] 1 each PO Q4 PRN #20 tablet PRN Reason: Referrals: ROMERO CALL DPM [NO LOCAL MD] - Follow up tomorrow
== END 2019-12-08 19:35 | disposition home or self-care (01) ==
LOC: ER 17:30
DX: G89.18 Other acute postprocedural pain (principal); F17.200 Nicotine dependence, unspecified, uncomplicated
CPT/HCPCS: 99283

== ENCOUNTER 2020-02-14 19:18 | Emergency (ER) | payer MEDICAID ==
[2020-02-14] MEDS ORDERED: HYDROCODONE/ACETAMINOPHEN 5-325 MG TABLET PO ONE (20:32)
--- NOTE | 2020-02-14 20:41 | ER Document Report ---
ED Extremity Problem, Lower - General Chief Complaint: Ankle Pain Stated Complaint: LEFT ANKLE POST OP INJURY/FALL Time Seen by Provider: 02/14/20 20:22 Primary Care Provider: CHARLI BOO MD [Primary Care Provider] - Follow up as needed Mode of Arrival: Ambulatory Information source: Patient Notes: 24-year-old female presents to ED for complaint of pain to her left ankle. For the last 2 weeks. She states that on December 03 she had a tendon taken out a cadaver placed and 5 screws and she has been on crutches since then she states that a few weeks ago she slipped on a ramp and fell. She states she tried to catch herself with the heel of the cast and the cast slipped out from under her and she fell. She states that she called her foot doctor who did the surgery and they would not answer so she went to the family doctor and get an x-ray. This was on January 29. She states they told her they did not know what it was supposed to look like really that she needed to follow-up with the primary care doctor. Patient states that the last time she visited also surgeon was on January 14 and they gave her hydrocodone 5 mg and she has not seen him since then. She states she is tried to call him several times for the last couple days and he has not answered. She states she finally came in here because she was continuing to have pain. REVIEW OF SYSTEMS: MUSCULOSKELETAL: Patient has a cast on her left ankle. She states she is having severe pain to the lateral aspect of the ankle. She states she had a tendon cadaver replaced and 5 screws. She states when she fell she has had sharp pain on the lateral aspect of the ankle since and that the surgery is on the medial aspect. SKIN: Unable to examine skin due to cast HEMATOLOGIC : Denies easy bruising or bleeding. NEUROLOGICAL: Very tearful due to not being able to get a hold to her orthopedic surgeon or get an answer or get a visit before February 18. ALL OTHER SYSTEMS REVIEWED AND NEGATIVE. PHYSICAL EXAMINATION: GENERAL: Well-appearing, well-nourished and in no acute distress. HEAD: Atraumatic, normocephalic. EYES: Pupils equal round extraocular movements intact, conjunctiva are normal. ENT: Nares patent NECK: Normal range of motion LUNGS: No respiratory distress Musculoskeletal: Patient is walking with her crutches. Unable to examine the ankle due to the cast on her ankle. NEUROLOGICAL: Patient is using the crutches well. She has good sensation to the toes. PSYCH: Patient is tearful because she is frustrated with the orthopedic surgeon. SKIN: Toes are warm good color no cyanosis noted good cap refill she has casting cannot assess the skin of the ankle TRAVEL OUTSIDE OF THE [place] IN LAST 30 DAYS: No - HPI Patient complains to provider of: Injury - Surgery December 03 fall 2 weeks ago Location: Ankle - Left Occurred: Other - See HPI Where: Home, Outdoors Quality of pain: Sharp Severity: Moderate Pain Level: 4 Context: Fell - 2 weeks ago Recent injury: Possibly Associated symptoms: Painful ambulation Exacerbated by: Hanging down, Movement, Walking Relieved by: Nothing - Related Data Allergies/Adverse Reactions: hydromorphone [From Dilaudid] Allergy (Verified 12/08/19 18:33) tramadol Allergy (Verified 12/08/19 18:33) Past Medical History - General Information source: Patient - Social History Smoking Status: Current Every Day Smoker Chew tobacco use (# tins/day): No Frequency of alcohol use: None Drug Abuse: None Family History: None, Reviewed & Not Pertinent, CVA, Malignancy Patient has homicidal ideation: No - Past Medical History Cardiac Medical History: Reports: None Pulmonary Medical History: Reports: None EENT Medical History: Reports: None Neurological Medical History: Reports: None Endocrine Medical History: Reports: None Renal/ Medical History: Reports: None Malignancy Medical History: Reports: None GI Medical History: Reports: None Musculoskeletal Medical History: Reports None Skin Medical History: Reports None Psychiatric Medical History: Reports: Hx Attention Deficit Hyperactivity Disorder, Hx Depression, Hx Post Traumatic Stress Disorder Traumatic Medical History: Reports: None Infectious Medical History: Reports: None Past Surgical History: Reports: Hx Orthopedic Surgery - lt ankle, Hx Tonsillectomy - Immunizations Hx Diphtheria, Pertussis, Tetanus Vaccination: Yes Physical Exam - Vital signs Vitals: Temp Pulse Resp BP Pulse Ox 98.4 F 76 16 113/80 100 02/14/20 19:43 02/14/20 19:43 02/14/20 19:43 02/14/20 19:43 02/14/20 19:43 Course - Re-evaluation Re-evalutation: 02/14/20 21:41 X-ray was discussed with Dr. Mena he stated the x-ray was in perfect alignment L the hardware looked normal. The radiologist read it as no acute changes the hardware was intact and the bones were in alignment. Patient was given a written report of the x-ray she was also allowed to observe the x-ray on the computer. She was instructed to please follow-up with her orthopedic surgeon and her primary doctor. Patient verbalized understanding and agreement with treatment plan and patient was discharged home. - Vital Signs Vital signs: Temp Pulse Resp BP Pulse Ox 98.4 F 76 16 113/80 100 02/14/20 20:21 02/14/20 19:43 02/14/20 19:43 02/14/20 19:43 02/14/20 19:43 - Diagnostic Test Radiology reviewed: Image reviewed, Reports reviewed Discharge - Discharge Clinical Impression: Left ankle pain Qualifiers: Chronicity: chronic Qualified Code(s): M25.572 - Pain in left ankle and joints of left foot; G89.29 - Other chronic pain Condition: Stable Disposition: HOME, SELF-CARE Additional Instructions: You were seen today for pain in the left ankle. He states the pain is been there for the last 2 weeks. You have seen a primary doctor who x-rayed it and told you that she needed to follow-up with the orthopedic surgeon. States she is made multiple calls to the orthopedic surgeon. We did x-ray the ankle at this time. The hardware is intact in place with good alignment to the ankle. There is no obvious reasons for your pain to your left ankle. I have medicated you with 1 Brewster in the emergency room. You stated this is what the doctor gave you the last. The last prescription I see for hydrocodone/acetaminophen 10/325 was on January 30, 2020. FOLLOW-UP CARE: If you have been referred to a physician for follow-up care, call the physicians office for an appointment as you were instructed or within the next two days. If you experience worsening or a significant change in your symptoms, notify the physician immediately or return to the Emergency Department at any time for re-evaluation. Referrals: CHARLI BOO MD [Primary Care Provider] - Follow up in 3-5 days
--- NOTE | 2020-02-14 21:05 | RADIOLOGY REPORT (SQ) ---
EXAM DESCRIPTION: XR ANKLE 3 OR MORE VIEWS COMPLETED DATE/TME: 02/14/2020 20:34 CLINICAL HISTORY: 24 years, Female, Previous ankle surgery has cast on fell 2 weeks ago COMPARISON: Left ankle series from 10/03/2017. No recent studies. TECHNIQUE: Three views of the left ankle. FINDINGS: Plate and multiple screws along the medial distal tibia. Single screw through the medial talus. Normal alignment. Nondisplaced fractures of the medial tibia and medial talus. Films were catheter. Difficult to evaluate the soft tissues..
[2020-02-14 21:31] VITALS: BP 109/71
== END 2020-02-14 21:30 | disposition home or self-care (01) ==
LOC: ER 19:18
DX: M25.572 Pain in left ankle and joints of left foot (principal); W01.0XXA Fall on same level from slipping, tripping and stumbling without subsequent striking against object, initial encounter; Z98.890 Other specified postprocedural states; Z88.8 Allergy status to other drugs, medicaments and biological substances; F17.200 Nicotine dependence, unspecified, uncomplicated
CPT/HCPCS: 99283